=== PATIENT | female | born 1970 | race Caucasian/White ===

== ENCOUNTER → 2016-05-14 | Outpatient (CLI) | payer OTHER ==
--- NOTE | 2016-05-14 16:35 | CT ---
EXAMINATION TYPE: CT wrist LT wo con DATE OF EXAM: 05/14/2016 2:40 PM COMPARISON: NONE HISTORY: Wrist contusion CT DLP: 83.3 mGycm Automated exposure control for dose reduction was used. FINDINGS: A suspicious fracture is not identified. Soft tissues appear unremarkable. Scaphoid appears intact. Joint spaces appear normal. Some osseous structures appear normal within the [id number]. Three-D reconstructed images performed separately by the technologist are reviewed rotating on the [employer] mputer. IMPRESSION: NO SUSPICIOUS AREA FOR ACUTE OR SUBACUTE FRACTURE IDENTIFIED. SOFT TISSUES APPEAR UNREMARKABLE.
== END | disposition home or self-care (01) ==
LOC: RADCTMAIN 14:05
PROVIDERS: ATTEND Orthopaedic Surgery
DX: S60.212A Contusion of left wrist, initial encounter (principal)

== ENCOUNTER 2017-02-28 19:18 | Emergency (ER) | payer OTHER ==
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
[2017-02-28] MEDS ORDERED: HALOPERIDOL LACTATE 5 MG/ML 1 ML VIAL IM PRN (20:33)
[2017-02-28 20:46] LABS: Basophils # (A) 0.1 k/uL (0-0.2); Basophils % (A) 1 %; CH 31.8; CHCM 32.3; Eosinophils # (A) 0.6 k/uL (0-0.7); Eosinophils % (A) 7 %; HDW 2.01; HGB 15.3 gm/dL (11.4-16.0); Luc # (Auto) 0.31; Luc % (Auto) 3; Lymphocytes # (A) 3.4 k/uL (1.0-4.8); Lymphocytes % (A) 37 %; MCH 31.6 pg (25.0-35.0); MCHC 31.9 g/dL (31.0-37.0); MCV 98.9 fL (80.0-100.0); Mean Platelet Volume 8.3; Monocytes # (A) 0.7 k/uL (0-1.0); Monocytes % (A) 7 %; Neutrophils # (A) 4.2 k/uL (1.3-7.7); Neutrophils % (A) 45 %; RBC 4.85 m/uL (3.80-5.40); WBC 9.3 k/uL (3.8-10.6); WBC (Perox) 9.39
[2017-02-28] MEDS ORDERED: LORazepam 2 MG/ML INJ IM STA (20:52)
[2017-02-28 21:07] LABS: ALT 63 U/L (9-52); AST 39 U/L (14-36); Acetaminophen <10.0 ug/mL; Alkaline Phosphatase 49 U/L (38-126); Anion Gap 10 mmol/L; Blood Urea Nitrogen 9 mg/dL (7-17); Calcium 9.8 mg/dL (8.4-10.2); Carbon Dioxide 24 mmol/L (22-30); Chloride 112 mmol/L (98-107); Glucose 82 mg/dL (74-99); Non-African American GFR(MDRD) >60 (>60 ml/min/1.73 sqM); Salicylate <1.0 mg/dL; Sodium 146 mmol/L (137-145); Total Bilirubin 0.4 mg/dL (0.2-1.3); Total Protein 7.5 g/dL (6.3-8.2)
[2017-02-28 21:17] LABS: Alcohol 251 mg/dL
[2017-02-28 21:19] LABS: Potassium 5.3 mmol/L (3.5-5.1)
[2017-02-28 22:20] VITALS: BP 102/64; TEMP 97.8
[2017-02-28 23:43] VITALS: PULSE 72; RESP 14
== END 2017-03-01 05:36 | disposition home or self-care (01) ==
LOC: EC 19:18
DX: F10.120 Alcohol abuse with intoxication, uncomplicated (principal); K21.9 Gastro-esophageal reflux disease without esophagitis; I10 Essential (primary) hypertension; F32.9 Major depressive disorder, single episode, unspecified; F17.200 Nicotine dependence, unspecified, uncomplicated; Z79.899 Other long term (current) drug therapy; Z88.1 Allergy status to other antibiotic agents; Z88.5 Allergy status to narcotic agent; Z88.8 Allergy status to other drugs, medicaments and biological substances; Z91.040 Latex allergy status
CPT/HCPCS: 36415; 80053; 85025; 80306; 83520 ×2; 80320; 99285; 96372 ×2; J2060; J1630

== ENCOUNTER 2017-06-16 17:52 | Emergency (ER) | payer OTHER ==
[2017-06-16 18:08] VITALS: BP 148/93; PULSE 88; RESP 20; TEMP 97
[2017-06-16] MEDS ORDERED: HYDROcodone/APAP 5-325MG 1 EACH TAB PO STA (18:38)
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
[2017-06-16] MEDS ORDERED: ACET/COD 300 MG/30 MG STARTER PACK 6 TAB BTL PO STA (19:21)
== END 2017-06-16 19:22 | disposition home or self-care (01) ==
LOC: EC 17:52
DX: S71.132A Puncture wound without foreign body, left thigh, initial encounter (principal); I10 Essential (primary) hypertension; K21.9 Gastro-esophageal reflux disease without esophagitis; F17.200 Nicotine dependence, unspecified, uncomplicated; Z79.899 Other long term (current) drug therapy; Z88.1 Allergy status to other antibiotic agents; Z88.5 Allergy status to narcotic agent; Z88.8 Allergy status to other drugs, medicaments and biological substances; Z91.040 Latex allergy status; W54.0XXA Bitten by dog, initial encounter; Y93.89 Activity, other specified
CPT/HCPCS: 99283

== ENCOUNTER 2017-08-10 03:36 | Emergency (ER) | payer SELFPAY ==
[2017-08-10] MEDS ORDERED: IBUPROFEN 400 MG TAB PO STA (04:30)
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
[2017-08-10] MEDS ORDERED: ACETAMINOPHEN TAB 325 MG TAB PO STA (04:47)
--- NOTE | 2017-08-10 04:50 | XR ---
EXAM: XR Right Clavicle Complete, 2 or More Views CLINICAL HISTORY: : Pain TECHNIQUE: Frontal and lordotic views of the right clavicle. COMPARISON: No relevant prior studies available. FINDINGS: Bones/joints: Unremarkable. No acute fracture. No dislocation. Soft tissues: Unremarkable. IMPRESSION: Normal right clavicle x-rays.
[2017-08-10 04:59] VITALS: BP 145/88; PULSE 76; RESP 18; TEMP 98.1
== END 2017-08-10 04:58 | disposition home or self-care (01) ==
LOC: EC 03:36
DX: M25.511 Pain in right shoulder (principal); K21.9 Gastro-esophageal reflux disease without esophagitis; I10 Essential (primary) hypertension; M19.90 Unspecified osteoarthritis, unspecified site; F17.200 Nicotine dependence, unspecified, uncomplicated; Z88.1 Allergy status to other antibiotic agents; Z88.5 Allergy status to narcotic agent; Z88.8 Allergy status to other drugs, medicaments and biological substances; Z91.040 Latex allergy status; Z79.899 Other long term (current) drug therapy
CPT/HCPCS: 99283

== ENCOUNTER 2018-01-07 10:41 | Inpatient (IN) | payer OTHER ==
[2018-01-07] MEDS ORDERED: SODIUM CHLORIDE 0.9% 1,000 ML IV STA ×2 (11:31→13:46)
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
[2018-01-07 11:59] LABS: Basophils # (A) 0.1 k/uL (0-0.2); Basophils % (A) 0 %; Eosinophils # (A) 0.2 k/uL (0-0.7); Eosinophils % (A) 1 %; HGB 14.2 gm/dL (11.4-16.0); Lymphocytes # (A) 2.9 k/uL (1.0-4.8); Lymphocytes % (A) 16 %; MCH 32.8 pg (25.0-35.0); MCHC 34.7 g/dL (31.0-37.0); MCV 94.5 fL (80.0-100.0); Mean Platelet Volume 7.7; Monocytes # (A) 0.9 k/uL (0-1.0); Monocytes % (A) 5 %; Neutrophils # (A) 13.2 k/uL (1.3-7.7); Neutrophils % (A) 76 %; Platelet Count 194 k/uL (150-450); RBC 4.33 m/uL (3.80-5.40); WBC 17.4 k/uL (3.8-10.6)
[2018-01-07] MEDS ORDERED: KETOROLAC 30 MG/ML 1 ML VIAL IVP STA (12:06)
[2018-01-07 12:15] LABS: ALT 60 U/L (9-52); AST 131 U/L (14-36); Albumin 4.2 g/dL (3.5-5.0); Alkaline Phosphatase 35 U/L (38-126); Anion Gap 8 mmol/L; Blood Urea Nitrogen 9 mg/dL (7-17); Calcium 9.6 mg/dL (8.4-10.2); Carbon Dioxide 25 mmol/L (22-30); Chloride 105 mmol/L (98-107); Glucose 111 mg/dL (74-99); Magnesium 1.6 mg/dL (1.6-2.3); Potassium 4.4 mmol/L (3.5-5.1); Sodium 138 mmol/L (137-145); Total Bilirubin 0.4 mg/dL (0.2-1.3)
[2018-01-07 12:39] LABS: D-Dimer 0.42 mg/L FEU (<0.60); INR 1.1 (<1.2); Prothrombin Time 10.3 sec (9.0-12.0)
[2018-01-07 12:45] LABS: Creatine Kinase MB 55.1 ng/mL (0.0-2.4); Troponin I <0.012 ng/mL (0.000-0.034)
--- NOTE | 2018-01-07 12:52 | CT ---
EXAMINATION TYPE: CT brain cspine wo con DATE OF EXAM: 01/07/2018 COMPARISON: 02/22/2016 HISTORY: Fall with subsequent head and neck pain after syncopal episode. CT DLP: 1462.1 mGycm. Automated Exposure Control for Dose Reduction was Utilized. TECHNIQUE: CT scan of the head and cervical spine are performed without contrast. FINDINGS: There is no acute intracranial hemorrhage, mass effect, or midline shift identified. The ventricles and sulci are within normal limits in size. The globes are intact. Mild mucosal thickeni ng is seen within the maxillary sinuses and moderate within the ethmoid sinuses. Remaining paranasal sinuses and mastoid air cells are well aerated. Cervical spine is visualized in its entirety from C1 through upper thoracic levels and demonstrates s atisfactory alignment without evidence of acute fracture or dislocation. Prevertebral soft tissue ap pears within normal limits. The C1-C2 articulation is unremarkable. Straightening of usual cervical lordosis may relate to muscular sprain, spasm, or patient positioning. IMPRESSION: 1. There is no acute fracture or dislocation evident in the cervical spine. 2. No acute intracranial hemorrhage, mass effect, or midline shift is seen.
--- NOTE | 2018-01-07 13:02 | CT ---
EXAMINATION TYPE: CT pelvis wo con, CT lumbar spine wo con DATE OF EXAM: 01/07/2018 COMPARISON: 04/01/2016 HISTORY: Fall, pelvic pain, inability to urinate, history pelvic fxs (accession [id number]), Fall, jose re low back pain (accession [id number]) CT DLP: 467.1 (accession [id number]), 789.6 (accession [id number]) mGycm Automated exposure control for dose reduction was used. TECHNIQUE: CT of the lumbar spine and pelvis were performed without intravenous contrast per [facility] nt protocol. FINDINGS: Shawn vascular grooves are appreciated within the right hemisacrum and midline sacrum, however the re is no cortical step-off. Left-sided transitional vertebrae at L5-S1 is noted. Degenerative changes of the pubic symphysis are seen and comminuted subacute healing fracture of the inferior left pubic ramus is also noted. The urinary bladder is grossly distended. Follicular/cystic change of the left ovary is incidentally seen. No retroperitoneal hematoma is appreciated in the given [id number]. The lumbar vertebral bodies maintain normal vertebral body height and alignment. Small anterior osteo phytes are seen as well as Schmorl's nodes. L1-L2: No significant disc pathology, spinal canal stenosis or neural foraminal narrowing. L2-L3: Broad-based disc bulge is seen resulting in mild bilateral neural foraminal narrowing. No sign ificant spinal canal stenosis. L3-L4: There is a broad-based disc bulge resulting in mild bilateral neural foraminal narrowing. No s ignificant spinal canal stenosis. L4-L5: There is a left paracentral disc herniation seen on series 3 image 70 impressing upon the vent ral thecal sac creating mild spinal canal stenosis and impressing upon the left lateral recess. There is associated moderate to severe left neural foraminal narrowing and moderate right neural foraminal narrowing given the additional broad-based disc bulge and facet arthropathy. L5-S1: No significant disc pathology, spinal canal stenosis or neural foraminal narrowing. Cholecystectomy clips are seen. There is a very small hiatal hernia. Lung bases appear well aerated a nd their visualized portions. IMPRESSION: 1. SMALL LEFT PARACENTRAL DISC HERNIATION AT L4-L5. ALTHOUGH THERE IS ONLY MILD MASS EFFECT UPON THE VENTRAL THECAL SAC AND MILD SPINAL CANAL STENOSIS CLINICAL EVALUATION FOR CAUDA EQUINA SYNDROME IS RE COMMENDED THIS PATIENT STATES THERE IS URINARY RETENTION AND CT DEMONSTRATES AN ENLARGED URINARY B LADDER. 2. NO EVIDENCE OF COMPRESSION DEFORMITY OR VERTEBRAL BODY MALALIGNMENT OF THE LUMBAR SPINE. MILD MULT ILEVEL DEGENERATIVE CHANGES DESCRIBED ABOVE. 3. NO EVIDENCE OF ACUTE DISPLACED PELVIC FRACTURE.
[2018-01-07 13:07] LABS: Appearance,Urine Clear (Clear); Bilirubin,Urine Negative (Negative); Blood,Urine Negative (Negative); Color,Urine Yellow; Glucose,Urine (UA) Negative (Negative); Ketones,Urine 1+ (Negative); Leukocyte Esterase,Urine Negative (Negative); Nitrite,Urine Negative (Negative); PH, Urine 5.5 (5.0-8.0); Protein,Urine Negative (Negative); Specific Gravity,Urine 1.015 (1.001-1.035); Urobilinogen,Urine <2.0 mg/dL (<2.0)
[2018-01-07 13:26] LABS: Creatine Kinase 4140 U/L (30-135)
[2018-01-07] MEDS ORDERED: HYDROmorphone 1 MG/ML 1 ML SYRINGE IVP STA (13:46)
--- NOTE | 2018-01-07 14:14 | XR ---
EXAMINATION TYPE: XR chest 2V DATE OF EXAM: 01/07/2018 COMPARISON: 04/01/2016 HISTORY: Chest pain after a fall TECHNIQUE: Frontal and lateral views of the chest are obtained. FINDINGS: There is chronic blunting of the right costophrenic angle without pleural effusion seen on the lateral view. Therefore this likely relates to pleural parenchymal scarring or subpleural deposi tion of fat. No focal consolidation, pleural effusion or pneumothorax is seen. Osseous structures ramya ear intact. Cardia mediastinal silhouette is within normal limits of size. IMPRESSION: No acute cardiopulmonary process.
[2018-01-07] MEDS ORDERED: NALOXONE 0.4 MG/ML 1 ML VIAL IV PRN (16:20)
[2018-01-07] MEDS ORDERED: ACETAMINOPHEN TAB 325 MG TAB PO PRN (16:20)
[2018-01-07] MEDS: HYDROcodone/APAP 7.5-325MG 1 EACH TAB PO PRN ×2 (17:49→22:32)
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
[2018-01-07] MEDS: GABAPENTIN 300 MG CAP PO SCH (19:41)
[2018-01-07] MEDS: SODIUM CHLORIDE 0.9% 1,000 ML IV SCH ×2 (19:41→20:51)
[2018-01-07] MEDS: HEPARIN SODIUM,PORCINE 5,000 UNIT/ML 1 ML VIAL SQ SCH (19:42)
[2018-01-07] MEDS: DICYCLOMINE 20 MG TAB PO SCH ×2 (20:08→20:51)
[2018-01-07 23:14] VITALS: RESP 18
[2018-01-08] MEDS: SODIUM CHLORIDE 0.9% 1,000 ML IV SCH ×4 (03:41→21:10)
[2018-01-08] MEDS: HYDROcodone/APAP 7.5-325MG 1 EACH TAB PO PRN (05:55)
[2018-01-08 06:53] LABS: HCT 34.5 % (34.0-46.0); HGB 12.1 gm/dL (11.4-16.0); MCH 33.4 pg (25.0-35.0); MCHC 35.1 g/dL (31.0-37.0); MCV 95.2 fL (80.0-100.0); Platelet Count 129 k/uL (150-450); RBC 3.62 m/uL (3.80-5.40); RDW 13.2 % (11.5-15.5)
[2018-01-08 07:07] LABS: ALT 67 U/L (9-52); AST 101 U/L (14-36); Albumin 2.9 g/dL (3.5-5.0); Alkaline Phosphatase 42 U/L (38-126); Anion Gap 6 mmol/L; Blood Urea Nitrogen 6 mg/dL (7-17); Calcium 8.2 mg/dL (8.4-10.2); Carbon Dioxide 24 mmol/L (22-30); Chloride 109 mmol/L (98-107); Glucose 91 mg/dL (74-99); Potassium 3.8 mmol/L (3.5-5.1); Sodium 139 mmol/L (137-145); Total Bilirubin 0.5 mg/dL (0.2-1.3); Total Protein 5.2 g/dL (6.3-8.2)
[2018-01-08 07:28] LABS: Creatine Kinase 1471 U/L (30-135)
[2018-01-08] MEDS ORDERED: PANTOPRAZOLE 40 MG TABLET PO SCH (07:30)
[2018-01-08] MEDS: DICYCLOMINE 20 MG TAB PO SCH ×4 (08:10→21:18)
[2018-01-08] MEDS: GABAPENTIN 300 MG CAP PO SCH ×2 (08:11→21:18)
[2018-01-08] MEDS: HEPARIN SODIUM,PORCINE 5,000 UNIT/ML 1 ML VIAL SQ SCH ×2 (08:11→21:18)
[2018-01-08] MEDS ORDERED: LUTEIN PO SCH (09:00)
[2018-01-08] MEDS ORDERED: VITAMIN C PO SCH (09:00)
[2018-01-08] MEDS ORDERED: [UNRECOGNIZED DRUG - OTHER] PO SCH (09:00)
[2018-01-08] MEDS ORDERED: CYANOCOBALAMIN 500 MCG TAB PO SCH (09:00)
[2018-01-08] MEDS ORDERED: NICOTINE 14MG/24HR PATCH TRANSDERM SCH (09:00)
[2018-01-08] MEDS ORDERED: ZINC PO SCH (09:00)
--- NOTE | 2018-01-08 09:25 | P.PN ---
Subjective Progress Note Date: 01/08/18 The patient was seen and examined at the bedside. She notes that her RUE weakness has improved significantly. She otherwise denied having any facial weakness, numbness, tingling, chest pain, SOB, nausea, vomiting, diarrhea, fever , chills, or dysuria. Objective - Vital Signs Vital signs: Vital Signs Temp 98 F 01/07/18 23:11 Pulse 82 01/08/18 04:00 Resp 18 01/08/18 04:00 BP 105/59 01/08/18 04:00 Pulse Ox 99 01/08/18 04:00 Intake & Output 01/07/18 01/08/18 01/08/18 18:59 06:59 18:59 Intake Total 1640 Output Total 600 925 Balance -600 715 Weight 81.647 kg 85.2 kg Intake: IV 1400 Sodium Chloride 0.9% 1, 1400 000 ml @ 200 mls/hr IV . Q5H [facility] Rx#:[id number] Oral 240 Output: Urine 600 500 Straight 600 500 Post Void Residual 425 - Exam General: Non-toxic, in no acute distress HEENT: NC/AT, anicteric sclerae, moist conjunctiva, no lid-lag, PERRLA, oropharynx clear, no erythema, exudates Cardiovascular: S1/S2 wnl, no murmurs, rubs, or gallops Lungs: Clear to auscultation, normal respiratory effort, no accessory muscle use Abdominal: Soft, nontender, non-distended, no guarding, rebound, or rigidity, normoactive bowel sounds Skin: Warm, dry Extremities: No edema or contractures, tenderness of R forearm no overlying skin changes noted, no swelling or erythema Psychiatric: Alert and oriented to person, place and time, appropriate affect, Intact judgment Neuro: CN II-XII grossly intact, Strength 5/5 throughout except RUE distally, 4/ 5, babinski downwards, finger to nose wnl - Labs CBC & Chem 7: 01/08/18 06:10 01/08/18 06:10 Labs: Abnormal Lab Results - Last 24 Hours (Table) 01/07/18 01/07/18 01/07/18 Range/Units 11:40 11:40 11:40 WBC 17.4 H (3.8-10.6) k/uL RBC (3.80-5.40) m/uL Plt Count (150-450) k/uL Neutrophils # 13.2 H (1.3-7.7) k/uL Chloride (98-107) mmol/L BUN (7-17) mg/dL Creatinine (0.52-1.04) mg/dL Glucose 111 H (74-99) mg/dL Calcium (8.4-10.2) mg/dL AST 131 H (14-36) U/L ALT 60 H (9-52) U/L Alkaline Phosphatase 35 L (38-126) U/L Creatine Kinase (30-135) U/L Total Creatine Kinase 4140 H* (30-135) U/L CK-MB (CK-2) 55.1 H (0.0-2.4) ng/mL Total Protein (6.3-8.2) g/dL Albumin (3.5-5.0) g/dL Urine Ketones (Negative) 01/07/18 01/08/18 01/08/18 Range/Units 12:53 06:10 06:10 WBC 14.0 H (3.8-10.6) k/uL RBC 3.62 L (3.80-5.40) m/uL Plt Count 129 L (150-450) k/uL Neutrophils # (1.3-7.7) k/uL Chloride 109 H (98-107) mmol/L BUN 6 L (7-17) mg/dL Creatinine 0.51 L (0.52-1.04) mg/dL Glucose (74-99) mg/dL Calcium 8.2 L (8.4-10.2) mg/dL AST 101 H (14-36) U/L ALT 67 H (9-52) U/L Alkaline Phosphatase (38-126) U/L Creatine Kinase 1471 H* (30-135) U/L Total Creatine Kinase (30-135) U/L CK-MB (CK-2) (0.0-2.4) ng/mL Total Protein 5.2 L (6.3-8.2) g/dL Albumin 2.9 L (3.5-5.0) g/dL Urine Ketones 1+ H (Negative) Assessment and Plan Plan: Syncope, possibly secondary to dehydration, w/ fall and resulting RUE weakness, improved - C/w Telemetry monitoring. - Awaiting echocardiogram, MRI Brain, EEG, and Neurology consult - F/u U-Tox - Fall, seizure, aspiration precautions - Awaiting B12 levels - Neurochecks - C/w IVFs Rhabdomyolysis, possibly secondary to dehydration/fall, improving - IVFs 200 cc/hr - Monitor CPK Leukocytosis, improved, no signs of infection - Will monitor Deranged LFTs - Stable. Will monitor Tobacco abuse disorder - Nicotine patch - Counselled on importance of cessastion DVT//GI prophylaxis - Heparin SQ - No indication for GI prophylaxis Discussed with: Patient Anticipated discharge date: 01/10/[address]: Home A total of 35 minutes was spent on the care of this complex patient more than 50 % of the time was spent in counseling and care coordination.
--- NOTE | 2018-01-08 10:38 | MR ---
EXAMINATION TYPE: MR brain wo/w con DATE OF EXAM: 01/08/2018 10:28 AM COMPARISON: NONE HISTORY: Syncope, fall, RUQ weakness TECHNIQUE: Multiplanar, multiecho imaging of the brain was obtained with and without intravenous adm inistration of 7.5 mL intravenous Gadavist. FINDINGS: Midline structures are unremarkable. There is a normal craniocervical junction. Echoplanar diffusion imaging is normal. There is mild mucoperiosteal thickening involving the maxillary sinuses bilaterally. There is also so me ethmoidal sinus mucosal disease. There are normal vascular flow voids. The orbits are normal. There is no evidence of a CP angle mass lesion. There are approximately 2 I signal FLAIR lesions. The largest is in the extreme capsule on the right and measures 5.5 mm. These are nonspecific. There is no mass effect, midline shift or intracranial bl ood. Following intravenous administration of gadolinium, I do not see evidence of abnormal enhancement. IMPRESSION: 1. NO ACUTE INTRACRANIAL ABNORMALITY. 2. RARE, FLAIR LESIONS WHICH ARE NONSPECIFIC. A DIFFERENTIAL DIAGNOSIS INCLUDES DEMYELINATION, SMALL VESSEL DISEASE, HYPERTENSION, MIGRAINE HEADACHES AND LYME'S DISEASE.
--- NOTE | 2018-01-08 14:42 | ECHOF ---
Referral Reason:Syncope MEASUREMENTS -------- HEIGHT: 172.7 cm WEIGHT: 84.8 kg BP: RVIDd: 2.6 cm (< 3.3) IVSd: 0.8 cm (0.6 - 1.1) LVIDd: 4.8 cm (3.9 - 5.3) LVPWd: 1.0 cm (0.6 - 1.1) IVSs: 1.3 cm LVIDs: 3.1 cm LVPWs: 1.5 cm LA Diam: 2.9 cm (2.7 - 3.8) LAESV Index (A-L): 19.63 ml/m Ao Diam: 3.0 cm (2.0 - 3.7) AV Cusp: 2.0 cm (1.5 - 2.6) LA Diam: 3.8 cm (2.7 - 3.8) MV EXCURSION: 22.213 mm (> 18.000) MV EF SLOPE: 122 mm/s (70 - 150) EPSS: 0.3 cm MV E Shamar: 1.14 m/s MV DecT: 261 ms MV A Shamar: 0.99 m/s MV E/A Ratio: 1.16 FINDINGS -------- Sinus rhythm. This was a technically good study. LV size, wall thickness and systolic function are normal, with an EF greater than 55%. The left devin tricular size is normal. The right ventricle is normal in size. The left atrial size is normal. The right atrial size is normal. The aortic valve is trileaflet, and appears structurally normal. No aortic stenosis or regurgitation. Mild mitral annular calcification present. Mild mitral regurgitation is present. Mild tricuspid regurgitation present. There is no evidence of pulmonary hypertension. The right v entricular systolic pressure, as measured by Doppler, is {RVSP}. There is no pulmonic regurgitation present. The aortic root size is normal. There is no pericardial effusion. CONCLUSIONS -------- 1. LV size, wall thickness and systolic function are normal, with an EF greater than 55%. 2. The left ventricular size is normal. 3. The right ventricle is normal in size. 4. The left atrial size is normal. 5. The right atrial size is normal. 6. The aortic valve is trileaflet, and appears structurally normal. No aortic stenosis or regurgitati on. 7. Mild mitral annular calcification present. 8. Mild mitral regurgitation is present. 9. Mild tricuspid regurgitation present. 10. There is no evidence of pulmonary hypertension. 11. The right ventricular systolic pressure, as measured by Doppler, is {RVSP}. 12. There is no pulmonic regurgitation present. 13. The aortic root size is normal. 14. There is no pericardial effusion. CERTIFIED NURSING ASSISTANT INSTRUCTOR: Shirley Barber RDCS
[2018-01-08 19:43] LABS: Urine Alcohol Negative (Negative); Urine Barbiturate Negative (Negative); Urine Cocaine Negative (Negative); Urine Methadone Negative (Negative); Urine Opiates Positive (Negative); Urine Phencyclidine Negative (Negative)
[2018-01-08 21:02] VITALS: BP 135/79; PULSE 75; TEMP 97.2
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
[2018-01-11 09:15] LABS: Lyme IgG/IgM 0.1 Index
== END 2018-01-08 23:06 | disposition short-term general hospital (02) | DRG 312 ==
LOC: EC 10:41 → 6SEL 16:21
PROVIDERS: ADMIT Internal Medicine; ATTEND Internal Medicine
DX: R55 Syncope and collapse (principal); M62.82 Rhabdomyolysis; G83.4 Cauda equina syndrome; E86.0 Dehydration; D72.829 Elevated white blood cell count, unspecified; M51.36 Other intervertebral disc degeneration, lumbar region; R33.9 Retention of urine, unspecified; F32.9 Major depressive disorder, single episode, unspecified; K21.9 Gastro-esophageal reflux disease without esophagitis; I10 Essential (primary) hypertension; G89.29 Other chronic pain; M54.41 Lumbago with sciatica, right side; M54.42 Lumbago with sciatica, left side; M19.91 Primary osteoarthritis, unspecified site; G43.909 Migraine, unspecified, not intractable, without status migrainosus; K64.9 Unspecified hemorrhoids; M62.838 Other muscle spasm; R10.9 Unspecified abdominal pain; F17.210 Nicotine dependence, cigarettes, uncomplicated; Z71.6 Tobacco abuse counseling; Z79.899 Other long term (current) drug therapy; Z90.710 Acquired absence of both cervix and uterus; Z98.891 History of uterine scar from previous surgery; Z88.5 Allergy status to narcotic agent; Z88.8 Allergy status to other drugs, medicaments and biological substances; Z88.1 Allergy status to other antibiotic agents; Z91.040 Latex allergy status; W18.30XA Fall on same level, unspecified, initial encounter; Z82.49 Family history of ischemic heart disease and other diseases of the circulatory system
CPT/HCPCS: 36415; 51701; 70450; 70553; 71046; 72125; 72131; 72192; 80053; 80306; 81003; 82550; 82553; 82607; 83735; 84484; 85025; 85027; 85379; 85610; 85730; 86618; 93005; 93306; 96361; 96374; 96375; 99285